=== PATIENT | female | born 1970 | race Caucasian/White ===

== ENCOUNTER 2024-02-09 20:15 | Emergency (ER) | payer SELFPAY ==
[2024-02-09] MEDS ORDERED: Dexamethasone 10 MG/ML VIAL ONE (21:10)
== END 2024-02-09 21:20 | disposition home or self-care (01) ==
LOC: CSHERS 20:15
DX: J06.9 Acute upper respiratory infection, unspecified (principal); J02.9 Acute pharyngitis, unspecified
CPT/HCPCS: 99283; J1100